=== PATIENT | male | born 1985 ===

== ENCOUNTER 2017-06-25 02:14 | Observation (INO) | payer MEDICAID ==
[2017-06-25 02:38] VITALS: BMI 23.9
--- NOTE | 2017-06-25 03:10 | ED PDOC ---
HPI: Psych/Substance Abuse Time Seen by Provider: 06/25/17 02:37 Chief Complaint (Nursing): Psychiatric Evaluation Chief Complaint (Provider): Crisis evaluation - PT states he wants Rx for Xanax. History Per: Patient History/Exam Limitations: no limitations Onset/Duration Of Symptoms: Days Current Symptoms Are (Timing): Still Present Additional Complaint(s): Pt states he needs help for his bipolar disorder. PT states he has not been on medications because he did not have insurance. Pt was brought in by sister. Sister states he told her that he would lock her in his trunk. She states he attempted suicide last week and was seen by out-patient psychiatrist. Pt got aggressive in office after medical records with only previous Rx for abdominal pain was sent to the psychiatrist. Pt yelling and throwing his phone in the traige area. Pt states that he will "fuck anyone up who comes near me". Past Medical History Reviewed: Historical Data, Nursing Documentation, Vital Signs Vital Signs: Last Vital Signs Temp 97.7 F 06/25/17 02:32 Pulse 99 H 06/25/17 02:32 Resp 18 06/25/17 02:32 BP 159/92 H 06/25/17 02:32 Pulse Ox 97 06/25/17 02:32 - Medical History PMH: Anxiety, Bipolar Disorder, Depression, Gastritis, Schizophrenia Denies: Dementia, Emphysema, HIV, HTN, Hyperthyroidism, Hypothyroidism, Pulmonary Embolism, Chronic Kidney Disease, Seizures, Sickle Cell Disease, Sexually Transmitted Disease, Sleep Apnea, TIA - Surgical History Surgical History: Denies: Appendectomy, CABG, Carotid Endarterectomy, Coronary Stent - Family History Family History: States: Unknown Family Hx - Living Arrangements Living Arrangements: With Family - Social History Current smoker - smoking cessation education provided: No Alcohol: Occasional Drugs: Denies - Immunization History Hx Tetanus Toxoid Vaccination: Yes (06/2016) Hx Influenza Vaccination: No Hx Pneumococcal Vaccination: No - Home Medications Home Medications: Ambulatory Orders Medication Instructions Recorded No Known Home Med 06/25/17 - Allergies Allergies/Adverse Reactions: Allergies Allergy/AdvReac Type Severity Reaction Status Date / Time banana Allergy Severe SHORTNESS Verified 06/25/17 02:32 OF BREATH Review of Systems ROS Statement: Except As Marked, All Systems Reviewed And Found Negative Constitutional: Negative for: Fever, Chills Psych: Positive for: Anxiety, Depression, Suicidal ideation. Negative for: Psychosis, Withdrawal Physical Exam - Reviewed Nursing Documentation Reviewed: Yes Vital Signs Reviewed: Yes - Physical Exam Appears: Positive for: Well, Non-toxic, No Acute Distress Head Exam: Positive for: ATRAUMATIC, NORMAL INSPECTION, NORMOCEPHALIC Skin: Positive for: Normal Color, Warm, DRY Eye Exam: Positive for: Normal appearance, EOMI, PERRL ENT: Positive for: Normal ENT Inspection Neck: Positive for: Normal, Painless ROM Cardiovascular/Chest: Positive for: Regular Rate, Rhythm Respiratory: Positive for: CNT, Normal Breath Sounds Gastrointestinal/Abdominal: Positive for: Normal Exam, Bowel Sounds, Soft Back: Positive for: Normal Inspection Extremity: Positive for: Normal ROM Neurologic/Psych: Positive for: Alert, express manager II-XII, Oriented, Gait. Negative for : Mood/Affect - Laboratory Results Result Diagrams: 06/25/17 04:16 06/25/17 04:16 - ECG O2 Sat by Pulse Oximetry: 97 Medical Decision Making Medical Decision Making: Crisis evaluation completed. Pt aggressive and psychotic in ER. Ativan and Halodol ordered. ED OBSERVATION Date of observation admission: 06/25/17 Time of observation admission: 05:17 - Observation admission statement Patient is being placed in observation because:: Alcohol intoxication, aggressive behavior, SI - Goals of Observation Goals of observation are:: Sobriety, crisis evaluation Disposition - Clinical Impression Clinical Impression: Alcohol abuse with intoxication, Psychiatric disorder - Patient ED Disposition Is Patient to be Admitted: Transfer of Care - Disposition Disposition: Transfer of Care Disposition Time: 06:00 Condition: GOOD
[2017-06-25 04:19] LABS: HEMOGLOBIN 13.7 g/dL (12.0-18.0); MEAN CELL VOLUME 97.1 fl (80.0-94.0); MEAN CORPUSCULAR HEMOGLOBIN 32.6 pg (27.0-31.0); MEAN CORPUSCULAR HGB CONC 33.6 g/dL (33.0-37.0); RBC 4.2 Mil/uL (4.40-5.90); RED CELL DISTRIBUTION WIDTH 13.7 % (11.5-14.5); WHITE BLOOD COUNT 6.7 K/uL (4.8-10.8)
[2017-06-25 04:43] LABS: BLOOD UREA NITROGEN 9 mg/dl (9-20); GFR AFRICAN-AMERICAN > 60; GFR NON-AFRICAN AMERICAN > 60
[2017-06-25 04:44] LABS: ALB/GLOB RATIO 1.5 (1.0-2.1); ALBUMIN 4.6 g/dL (3.5-5.0); ALT/SGPT 34 U/L (21-72); AST/SGOT 32 U/L (17-59); CALCIUM 9.5 mg/dL (8.4-10.2)
--- NOTE | 2017-06-25 06:09 | ED PDOC ---
- Laboratory Results Result Diagrams: 06/25/17 04:16 06/25/17 04:16 - ECG O2 Sat by Pulse Oximetry: 97 Medical Decision Making Medical Decision Makin: Patient signed over to me from Tosha Montaño PA-C pending clinical sobriety and crisis evaluation. 699: Patient signed over to Dr. Espinoza pending clinical sobriety and crisis evaluation. Scribe Attestation: Documented by Joshua Ferris acting as a scribe for Mary Sears MD. Provider Scribe Attestation: All medical record entries made by the Scribe were at my direction and personally dictated by me. I have reviewed the chart and agree that the record accurately reflects my personal performance of the history, physical exam, medical decision making, and the department course for this patient. I have also personally directed, reviewed, and agree with the discharge instructions and disposition. Disposition Counseled Patient/Family Regarding: Studies Performed, Diagnosis - Clinical Impression Clinical Impression: Alcohol abuse with intoxication, Psychiatric disorder - POA Present On Arrival: None - Disposition Disposition: Transfer of Care Disposition Time: 07:00 Condition: FAIR Patient Signed Over To: Vasu Espinoza Handoff Comments: Pending clinical sobriety and crisis evaluation.
[2017-06-25 07:45] LABS: URINE BILIRUBIN NEGATIVE (NEGATIVE); URINE BLOOD NEGATIVE (NEGATIVE); URINE CLARITY CLEAR (Clear); URINE COLOR YELLOW (YELLOW); URINE GLUCOSE (UA) NEG (Normal); URINE LEUKOCYTE ESTERASE NEG Leu/uL (Negative); URINE NITRATE NEGATIVE (NEGATIVE); URINE PROTEIN NEGATIVE (NEGATIVE); URINE UROBILINOGEN 0.2-1.0 mg/dL (0.2-1.0)
[2017-06-25 07:55] LABS: BARBITURATES, UR NEGATIVE (NEGATIVE); BENZODIAZEPINES, UR NEGATIVE (NEGATIVE); OPIATES, UR NEGATIVE (NEGATIVE); PHENCYCLIDINE, UR NEGATIVE (NEGATIVE)
--- NOTE | 2017-06-25 08:37 | ED PDOC ---
- Laboratory Results Result Diagrams: 06/25/17 04:16 06/25/17 04:16 - ECG O2 Sat by Pulse Oximetry: 98 Medical Decision Making Medical Decision Making: Medically stable for psychiatric evaluation Disposition - Clinical Impression Clinical Impression: Alcohol abuse with intoxication, Psychiatric disorder - POA Present On Arrival: None - Disposition Disposition: Transfer of Care Disposition Time: 15:00 Condition: FAIR Patient Signed Over To: Rose Mary Oviedo
--- NOTE | 2017-06-25 09:06 | RAD ---
HISTORY: cough COMPARISON: No prior. FINDINGS: LUNGS: No active pulmonary disease. PLEURA: No significant pleural effusion identified, no pneumothorax apparent. CARDIOVASCULAR: Normal. OSSEOUS STRUCTURES: No significant abnormalities. VISUALIZED UPPER ABDOMEN: Normal. OTHER FINDINGS: None. IMPRESSION: No active disease.
--- NOTE | 2017-06-25 10:52 | CARD ---
APPROVED REPORT EKG Measurement Heart [id number] ND [id number] <Conclusion> Normal sinus rhythm Normal ECG
--- NOTE | 2017-06-25 16:36 | ED PDOC ---
- Laboratory Results Result Diagrams: 06/25/17 04:16 06/25/17 04:16 - ECG O2 Sat by Pulse Oximetry: 98 Pulse Ox Interpretation: Normal - Progress ED Course And Treament: 3p Rec'd endorsement from Dr Espinoza. Pt accepted for transfer to [facility] for involuntary psych unit pending bed. Stable at this time. Per RN, pt has been cooperative, given haldol and ativan at 10am and had normal breakfast and lunch. Disposition - Clinical Impression Clinical Impression: Alcohol abuse with intoxication, Psychiatric disorder - POA Present On Arrival: None - Disposition Disposition: Other Institution Disposition Time: 05:20 Condition: STABLE Progress Note - Review of Symptoms Events since last encounter: 430p Pt was agitated and anxious about staying in hospital. Ativan ordered. 730p Pt cooperative. STable 11p Bed available for transfer to [facility]. Stable for transfer. Transfer papers signed.
[2017-06-25 18:42] VITALS: RESP 18
[2017-06-25 22:13] VITALS: BP 136/80; PULSE 65; TEMP 98.4
[2017-06-26 15:15] VITALS: O2SAT 98
== END 2017-06-25 22:47 ==
LOC: H.ER 02:14 → H.EROBSV 05:16
PROVIDERS: ADMIT Emergency Medicine; ATTEND Emergency Medicine
DX: F10.129 Alcohol abuse with intoxication, unspecified (principal); F20.9 Schizophrenia, unspecified; F32.9 Major depressive disorder, single episode, unspecified; F41.9 Anxiety disorder, unspecified; K29.70 Gastritis, unspecified, without bleeding; F31.9 Bipolar disorder, unspecified

== ENCOUNTER 2018-09-30 03:47 | Emergency (ER) | payer SELFPAY ==
[2018-09-30 03:48] VITALS: BMI 23.9
--- NOTE | 2018-09-30 04:49 | ED PDOC ---
HPI: Psych/Substance Abuse Time Seen by Provider: 09/30/18 03:52 Chief Complaint (Nursing): Psychiatric Evaluation Chief Complaint (Provider): Alcohol Intoxication and Substance Abuse History Per: Patient History/Exam Limitations: no limitations Modifying Factor(s): Alcohol, Marijuana Additional Complaint(s): 33 y/o male brought in for evaluation of public intoxication. Patient admits to alcohol use today. Patient states he was in a [employer] when the police were called. Patient additionally admits to marijuana use today. However, patient denies suicidal or homicidal ideation. PMD: none Past Medical History Reviewed: Historical Data, Nursing Documentation, Vital Signs Vital Signs: Last Vital Signs Temp 98.8 F 09/30/18 03:50 Pulse 90 09/30/18 03:50 Resp 20 09/30/18 03:50 BP 130/88 09/30/18 03:50 Pulse Ox 97 09/30/18 03:50 - Medical History PMH: Anxiety, Bipolar Disorder, Depression, Gastritis, Schizophrenia Denies: Dementia, Emphysema, HIV, HTN, Hyperthyroidism, Hypothyroidism, Pulmonary Embolism, Chronic Kidney Disease, Seizures, Sickle Cell Disease, Sexually Transmitted Disease, Sleep Apnea, TIA - Surgical History Surgical History: No Surg Hx Denies: Appendectomy, CABG, Carotid Endarterectomy, Coronary Stent - Family History Family History: States: Unknown Family Hx - Social History Alcohol: > 2 Drinks/Day Drugs: Other (Marijuana) - Immunization History Hx Tetanus Toxoid Vaccination: Yes (06/2016) Hx Influenza Vaccination: No Hx Pneumococcal Vaccination: No - Home Medications Home Medications: Ambulatory Orders Medication Instructions Recorded No Known Home Med 04/01/18 - Allergies Allergies/Adverse Reactions: Allergies Allergy/AdvReac Type Severity Reaction Status Date / Time banana Allergy Severe SHORTNESS Verified 04/01/18 14:47 OF BREATH Review of Systems ROS Statement: Except As Marked, All Systems Reviewed And Found Negative Psych: Positive for: Other (Public Intoxication) Physical Exam - Reviewed Nursing Documentation Reviewed: Yes Vital Signs Reviewed: Yes - Physical Exam Appears: Positive for: No Acute Distress (but intoxicated appearing) Head Exam: Positive for: ATRAUMATIC Skin: Positive for: Normal Color, Warm, Dry Eye Exam: Positive for: Normal appearance, EOMI, PERRL Neck: Positive for: Normal, Painless ROM Cardiovascular/Chest: Positive for: Regular Rate, Rhythm. Negative for: Murmur Respiratory: Positive for: Normal Breath Sounds. Negative for: Respiratory Distress Gastrointestinal/Abdominal: Positive for: Normal Exam, Soft. Negative for: Tenderness Extremity: Positive for: Normal ROM. Negative for: Pedal Edema, Deformity Neurologic/Psych: Positive for: Alert, Oriented (x3), Gait (steady). Negative for: Motor/Sensory Deficits - ECG O2 Sat by Pulse Oximetry: 97 (RA) Pulse Ox Interpretation: Normal Medical Decision Making Medical Decision Making: Time: 0450 A/P: 33 y/o male presenting with mild alcohol intoxication and without trauma. 550 Patient is awake, alert, steady gait, oriented, able to make decisions for himself, ready for discharge. Scribe Attestation: Documented by Trey Escoto, acting as a scribe for Kedar Gonzalez MD. Provider Scribe Attestation: All medical record entries made by the Scribe were at my direction and personally dictated by me. I have reviewed the chart and agree that the record accurately reflects my personal performance of the history, physical exam, medical decision making, and the department course for this patient. I have also personally directed, reviewed, and agree with the discharge instructions and disposition. Disposition - Clinical Impression Clinical Impression: Alcohol abuse - Disposition Referrals: Alcoholics Anonymous [Outside] Disposition: Routine/Home Disposition Time: 05:50 Condition: STABLE Instructions: Alcohol Abuse and Alcoholism (DC) Forms: [employer] (Amharic)
[2018-09-30 04:59] VITALS: BP 124/71; PULSE 85; RESP 18; TEMP 98.6
[2018-09-30 19:24] VITALS: O2SAT 97
== END 2018-09-30 04:58 | disposition home or self-care (01) ==
LOC: H.ER 03:47
DX: F10.10 Alcohol abuse, uncomplicated (principal); F12.90 Cannabis use, unspecified, uncomplicated; Z86.59 Personal history of other mental and behavioral disorders

== ENCOUNTER 2018-09-30 23:52 | Emergency (ER) | payer SELFPAY ==
[2018-09-30 23:53] VITALS: BMI 23.9
[2018-09-30 23:58] VITALS: BP 158/85; PULSE 103; RESP 20; TEMP 98.6; O2SAT 100
--- NOTE | 2018-10-01 01:18 | ED PDOC ---
HPI: Psych/Substance Abuse Time Seen by Provider: 09/30/18 23:57 Chief Complaint (Nursing): Medical Clearance Chief Complaint (Provider): Medical Clearance History Per: Patient History/Exam Limitations: no limitations Onset/Duration Of Symptoms: Hrs Current Symptoms Are (Timing): Still Present Suicide/Self Injury Attempted (Context): None Modifying Factor(s): Alcohol Additional History Per: Law Enforcement Additional Complaint(s): 33 y/o male brought in by police for medical and psychiatric clearance. Patient admits to drinking today. Patient was seen here in this ED yesterday for similar cause. Patient denies drug use, injuries, suicidal ideation and homicidal ideation. PMD: none Past Medical History Reviewed: Historical Data, Nursing Documentation, Vital Signs Vital Signs: Last Vital Signs Temp 98.6 F 09/30/18 23:55 Pulse 103 H 09/30/18 23:55 Resp 20 09/30/18 23:55 BP 158/85 H 09/30/18 23:55 Pulse Ox 100 09/30/18 23:55 - Medical History PMH: Anxiety, Bipolar Disorder, Depression, Gastritis, Schizophrenia Denies: Dementia, Emphysema, HIV, HTN, Hyperthyroidism, Hypothyroidism, Pulmonary Embolism, Chronic Kidney Disease, Seizures, Sickle Cell Disease, Sexually Transmitted Disease, Sleep Apnea, TIA - Surgical History Surgical History: No Surg Hx Denies: Appendectomy, CABG, Carotid Endarterectomy, Coronary Stent - Family History Family History: States: Unknown Family Hx - Social History Alcohol: > 2 Drinks/Day Drugs: Denies - Immunization History Hx Tetanus Toxoid Vaccination: Yes (06/2016) Hx Influenza Vaccination: No Hx Pneumococcal Vaccination: No - Home Medications Home Medications: Ambulatory Orders Medication Instructions Recorded RX: No Known Home Med 04/01/18 - Allergies Allergies/Adverse Reactions: Allergies Allergy/AdvReac Type Severity Reaction Status Date / Time banana Allergy Severe SHORTNESS Verified 09/30/18 23:55 OF BREATH Review of Systems ROS Statement: Except As Marked, All Systems Reviewed And Found Negative Constitutional: Positive for: Other (Medical Clearance) Psych: Positive for: Other (Psychiatric Clearance) Physical Exam - Reviewed Nursing Documentation Reviewed: Yes Vital Signs Reviewed: Yes - Physical Exam Appears: Positive for: No Acute Distress (however, mildly intoxicated appearing) Head Exam: Positive for: ATRAUMATIC, NORMOCEPHALIC Skin: Positive for: Normal Color, Warm, Dry Eye Exam: Positive for: Normal appearance, EOMI, PERRL Neck: Positive for: Normal, Painless ROM Cardiovascular/Chest: Positive for: Regular Rate, Rhythm. Negative for: Murmur Respiratory: Positive for: Normal Breath Sounds. Negative for: Respiratory Distress Gastrointestinal/Abdominal: Positive for: Normal Exam, Soft. Negative for: Tenderness Back: Positive for: Normal Inspection. Negative for: L CVA Tenderness, R CVA Te nderness, Vertebral Tenderness Extremity: Positive for: Normal ROM. Negative for: Pedal Edema, Deformity Neurologic/Psych: Positive for: Alert, Oriented. Negative for: Motor/Sensory Deficits - ECG O2 Sat by Pulse Oximetry: 100 (RA) Pulse Ox Interpretation: Normal Medical Decision Making Medical Decision Making: Time:0121 A/P: 33 y/o male brought in for medical and psychiatric clearance. -- Patient is clinically sober and able to make make decisions for himself. -- Patient does not currently pose as a risk to himself or others. -- Patient is stable for incarceration. Scribe Attestation: Documented by Trey Escoto, acting as a scribe for Kedar Gonzalez MD. Provider Scribe Attestation: All medical record entries made by the Scribe were at my direction and personally dictated by me. I have reviewed the chart and agree that the record accurately reflects my personal performance of the history, physical exam, medical decision making, and the department course for this patient. I have also personally directed, reviewed, and agree with the discharge instructions and disposition. Disposition - Clinical Impression Clinical Impression: Alcohol abuse - Disposition Referrals: Alcoholics Anonymous [Outside] Disposition: Routine/Home Disposition Time: 01:21 Condition: STABLE Additional Instructions: Patient is medically and psychiatrically cleared for incarceration. Instructions: Alcohol Abuse and Alcoholism (DC), General (DC) Forms: [employer] (Polish)
== END 2018-10-01 01:42 ==
LOC: H.ER 23:52
DX: F20.9 Schizophrenia, unspecified; F31.9 Bipolar disorder, unspecified; F41.9 Anxiety disorder, unspecified; F10.10 Alcohol abuse, uncomplicated